=== PATIENT | female | born 1950 | race Caucasian/White ===

== ENCOUNTER → 2020-12-03 | Outpatient (CLI) | payer MEDICARE ==
[2020-12-08 14:10] LABS: M-SPIKE, % Not Observed % (Not Observed); PROTEIN,TOTAL,URINE 4.6 mg/dL (Not Estab.)
== END | disposition home or self-care (01) ==
LOC: LAB SHORT 16:48
PROVIDERS: Internal Medicine
DX: R79.89 Other specified abnormal findings of blood chemistry (principal)
CPT/HCPCS: 81050; 84166

== ENCOUNTER 2023-08-27 08:17 | Day surgery (SDC) | payer MEDICARE ==
[~2023-08-27] VITALS: Ht 160 cm; Wt 71.4 kg
[2023-08-27] MEDS ORDERED: CeFAZolin Sodium 2,000 MG VIAL ONE (08:56)
[2023-08-27] MEDS ORDERED: NS 50 ML IV ONE (08:57)
[2023-08-27] MEDS ORDERED: PRAV20 (09:09)
[2023-08-27] MEDS ORDERED: LEVSOD75 (09:09)
[2023-08-27] MEDS ORDERED: ZYRTEC10 M2 (09:09)
[2023-08-27] MEDS ORDERED: ERGO400 (09:10)
[2023-08-27] MEDS ORDERED: PANT40 (09:10)
[2023-08-27] MEDS ORDERED: Aspir 8181 MG (09:10)
[2023-08-27] MEDS ORDERED: GABA300 (09:10)
[2023-08-27] MEDS ORDERED: ALBU90OI6 (09:11)
[2023-08-27] MEDS ORDERED: QVAR REDIHALE10.6 G2 (09:12)
[2023-08-27] MEDS ORDERED: PIRO20 (09:12)
[2023-08-27] MEDS ORDERED: MONT10T (09:12)
[2023-08-27] MEDS ORDERED: FERREX 28 TABL1 EACH (09:13)
[2023-08-27] MEDS ORDERED: C COMPLEX1000 M1 (09:13)
[2023-08-27] MEDS ORDERED: LOSARTAN-HCTZ1 EACH (09:14)
[2023-08-27] MEDS ORDERED: DILT120 (09:14)
[2023-08-27] MEDS ORDERED: Lactated Ringer's 1,000 ML IV ONE ×2 (09:22→09:43)
[2023-08-27] MEDS ORDERED: FentaNYL Citrate 50 MCG/ML 2 ML Injection ONE (10:01)
[2023-08-27] MEDS ORDERED: propofoL 20 ML IV ONE (10:01)
[2023-08-27] MEDS ORDERED: Midazolam HCl 1MG / ML 2ML Vial ONE (10:02)
--- NOTE | 2023-08-27 10:27 | NUR ---
08/27/23 1027 Peri Cervantes ROPIVACAINE 0.5% MIXED WITH 0.15ML EPI (VERIVED BY YORDAN) TO MAKE ROPIVACAINE 0.5% WITH EPI 1:200.00. 10ML ON FEILD.
[2023-08-27] MEDS ORDERED: Ropivacaine 0.5% HCl/Pf 5 MG/ML 20ML VIAL INJ ONE ×2 (10:36)
[2023-08-27] MEDS ORDERED: EPINEPhrine HCl 0.1 MG/ML 10ML SYR XX ONE ×3 (10:37)
[2023-08-27 11:18] VITALS: BP 127/78
== END 2023-08-27 12:19 | disposition home or self-care (01) ==
LOC: ORSCSDS 08:17
PROVIDERS: Orthopaedic Surgery
PROC: 0JBN0ZX Excision of Right Lower Leg Subcutaneous Tissue and Fascia, Open Approach, Diagnostic (ICD-10-PCS; principal; 2023-08-27 10:00)
DX: M67.461 Ganglion, right knee (principal); I10 Essential (primary) hypertension; E78.5 Hyperlipidemia, unspecified; J45.909 Unspecified asthma, uncomplicated; K21.9 Gastro-esophageal reflux disease without esophagitis; E03.9 Hypothyroidism, unspecified; Z79.899 Other long term (current) drug therapy; Z79.82 Long term (current) use of aspirin
CPT/HCPCS: 88304; J0690; J2250; J2704; J2795; J3010; J7120

== ENCOUNTER → 2024-03-01 | Outpatient (CLI) | payer MEDICARE ==
[~2024-03-01] MED LIST: ALBU90OI6; Aspir 8181 MG; C COMPLEX1000 M1; DILT120; ERGO400; FERREX 28 TABL1 EACH; GABA300; LEVSOD75; LOSARTAN-HCTZ1 EACH; MONT10T; PANT40; PIRO20; PRAV20; QVAR REDIHALE10.6 G2; ZYRTEC10 M2
== END ==
LOC: LAB 15:58 → LAB SHORT 15:58
DX: R30.0 Dysuria (principal)
CPT/HCPCS: 87077; 87086; 87186